=== PATIENT | female | born 1940 | race Caucasian/White ===

== ENCOUNTER 2017-12-18 11:54 | Inpatient (IN) | payer OTHER ==
[2017-12-18 13:26] LABS: ADD MAN DIFF? NO
[2017-12-18 13:30] LABS: WHITE BLOOD COUNT 12.1 10^3/ul (4.8-10.8)
[2017-12-18 13:30] LABS: BASOPHILS % 0.2 % (0.0-2.0); EOSINOPHILS # 0.2 10^3/ul (0.0-0.5); EOSINOPHILS % 1.7 % (0.0-7.0); HEMATOCRIT 36.7 % (37.0-47.0); HEMOGLOBIN 10.9 g/dl (12.0-16.0); LYMPHOCYTES # 0.8 10^3/ul (0.8-2.9); LYMPHOCYTES % 6.9 % (15.0-51.0); MEAN CORPUSCULAR HEMOGLOBIN 25.7 pg (29.0-33.0); MEAN CORPUSCULAR HGB CONC 29.7 g/dl (32.0-37.0); MEAN CORPUSCULAR VOLUME 86.6 fl (82.0-101.0); MEAN PLATELET VOLUME 10.7 fl (7.4-10.4); MONOCYTE # 0.9 10^3/ul (0.3-0.9); NEUTROPHIL # 10.1 10^3/ul (1.6-7.5); NEUTROPHILS % 83.8 % (39.0-77.0); PLATELET COUNT 362 10^3/UL (140-415); RED BLOOD COUNT 4.24 10^6/ul (4.20-5.40); RED CELL DISTRIBUTION WIDTH 18.3 % (11.5-14.5)
[2017-12-18 13:47] LABS: ANION GAP 10 (8-16); BLOOD UREA NITROGEN 36 mg/dl (7-20); CALCIUM 8.7 mg/dl (8.4-10.2); CARBON DIOXIDE 35 mmol/L (21-31); CHLORIDE 102 mmol/L (97-110); GLUCOSE 97 mg/dl (70-220); POTASSIUM 4.5 mmol/L (3.5-5.1); SODIUM 142 mmol/L (135-144)
[2017-12-18 13:59] LABS: TROPONIN-I 0.022 ng/ml (0.000-0.120)
[2017-12-18] MEDS: METHOCARBAMOL 750 MG TAB PO (14:21)
[2017-12-18] MEDS ORDERED: ONDANSETRON 4 MG INJ IV (15:00)
[2017-12-18] MEDS: LEVOFLOXACIN 500MG/D5W (PMX) 100 ML IV (15:51)
[2017-12-18] MEDS: SOD CHLORIDE 0.9% 500 ML IV (15:52)
[2017-12-18] MEDS: ACETAMINOPHEN 325 MG TAB PO (15:54)
[2017-12-18] MEDS ORDERED: IBUPROFEN 200 MG TAB (17:35)
[2017-12-18] MEDS ORDERED: ALBUTEROL/IPRATROPIUM (NEB) 3 ML AMP INH (18:30)
[2017-12-18] MEDS ORDERED: ACETAMINOPHEN 325 MG TAB PO (18:30)
[2017-12-18] MEDS ORDERED: HYDROCORTISONE 25 MG SUPP PR (18:30)
[2017-12-18] MEDS ORDERED: VANCOMYCIN IV PER PHARMACY XX (18:30)
[2017-12-18] MEDS ORDERED: BUPRENORPHINE HCL 2 MG SL (18:30)
[2017-12-18] MEDS ORDERED: NACL 0.9% 3 ML SYG IV (18:30)
[2017-12-18] MEDS ORDERED: CLOPIDOGREL 75 MG TAB PO (18:30)
[2017-12-18] MEDS ORDERED: ONDANSETRON 4 MG TAB PO (18:30)
[2017-12-18] MEDS: HYDROCODONE/APAP (5/325) TAB PO (19:13)
[2017-12-18] MEDS ORDERED: VANCOMYCIN 1.5 GM in SOD CHLORIDE 0.9% 250 ML IVPB (20:30)
[2017-12-18] MEDS: VANCOMYCIN 1 GM 250 ML IVPB ×2 (21:00→21:43)
[2017-12-18] MEDS: POLYETHYLENE GLYCOL 17 GM PACKET PO (21:00)
[2017-12-18] MEDS: BRIMONIDINE 0.2%-TIMOLOL 0.5% 5ML OPH LEFT EYE (21:06)
[2017-12-18] MEDS: LATANOPROST 0.005% 2.5 ML OPH LEFT EYE (21:06)
[2017-12-18] MEDS: CLOPIDOGREL 75 MG TAB PO (21:06)
[2017-12-18] MEDS: LUBIPROSTONE 24 MCG CAP PO (21:06)
[2017-12-18] MEDS: ATORVASTATIN 20 MG TAB PO (21:07)
[2017-12-18] MEDS: SUCRALFATE 1 GM TAB PO (21:07)
[2017-12-18] MEDS: GABAPENTIN 300 MG CAP PO (21:26)
[2017-12-18] MEDS: MAGNESIUM OXIDE 400 MG TAB PO (21:26)
[2017-12-18] MEDS: MIRTAZAPINE 15 MG TAB PO (21:26)
[2017-12-18] MEDS: QUETIAPINE 25 MG TAB PO (21:26)
[2017-12-19 05:52] LABS: ADD MAN DIFF? NO
[2017-12-19 06:00] LABS: BASOPHILS % 0.3 % (0.0-2.0); EOSINOPHILS # 0.6 10^3/ul (0.0-0.5); EOSINOPHILS % 6.4 % (0.0-7.0); HEMATOCRIT 34.1 % (37.0-47.0); HEMOGLOBIN 10.3 g/dl (12.0-16.0); LYMPHOCYTES # 0.6 10^3/ul (0.8-2.9); LYMPHOCYTES % 6.8 % (15.0-51.0); MEAN CORPUSCULAR HEMOGLOBIN 25.9 pg (29.0-33.0); MEAN CORPUSCULAR HGB CONC 30.2 g/dl (32.0-37.0); MEAN CORPUSCULAR VOLUME 85.7 fl (82.0-101.0); MEAN PLATELET VOLUME 10.6 fl (7.4-10.4); MONOCYTE # 0.8 10^3/ul (0.3-0.9); MONOCYTES % 8.7 % (0.0-11.0); NEUTROPHIL # 7.3 10^3/ul (1.6-7.5); NEUTROPHILS % 77.3 % (39.0-77.0); PLATELET COUNT 345 10^3/UL (140-415); RED BLOOD COUNT 3.98 10^6/ul (4.20-5.40); RED CELL DISTRIBUTION WIDTH 18.4 % (11.5-14.5)
[2017-12-19 06:00] LABS: WHITE BLOOD COUNT 9.4 10^3/ul (4.8-10.8)
[2017-12-19] MEDS: LEVOTHYROXINE 137 MCG TAB PO (06:42)
[2017-12-19 07:06] LABS: ALBUMIN 2.6 g/dl (3.3-4.9); ALBUMIN/GLOBULIN RATIO 1.04; ALKALINE PHOSPHATASE 39 IU/L (42-121); ANION GAP 6 (8-16); ASPARTATE AMINO TRANSFERASE 17 IU/L (15-46); BILIRUBIN,INDIRECT 0.2 mg/dl (0-1.1); BILIRUBIN,TOTAL 0.2 mg/dl (0.2-1.3); BLOOD UREA NITROGEN 34 mg/dl (7-20); CALCIUM 8.3 mg/dl (8.4-10.2); CARBON DIOXIDE 34 mmol/L (21-31); CHLORIDE 105 mmol/L (97-110); CHOL/HDL RATIO 2.5 RATIO; CHOLESTEROL 88 mg/dl (100-200); CREATININE 0.92 mg/dl (0.44-1.00); GLUCOSE 76 mg/dl (70-220); HDL CHOLESTEROL 34 mg/dl (33-92); LDL CHOLESTEROL,CALCULATED 38 mg/dl; PHOSPHORUS 3.6 mg/dl (2.5-4.9); POTASSIUM 4.3 mmol/L (3.5-5.1); SODIUM 141 mmol/L (135-144); TOTAL PROTEIN 5.1 g/dl (6.1-8.1); TRIGLYCERIDES 79 mg/dl (0-149)
[2017-12-19] MEDS: HYDROCODONE/APAP (5/325) TAB PO ×3 (08:05→22:29)
[2017-12-19 08:09] LABS: ALANINE AMINOTRANSFERASE 24 IU/L (13-69)
[2017-12-19] MEDS: ONDANSETRON 4 MG INJ IV (08:13)
[2017-12-19 08:41] LABS: THYROID STIMULATING HORMONE 0.338 MIU/L (0.465-4.680)
[2017-12-19 08:57] LABS: HEMOGLOBIN A1C 5.7 % (0-5.9)
[2017-12-19] MEDS: FLUTICASONE/VILANTEROL 100-25 INH (09:12)
[2017-12-19] MEDS: ASPIRIN 81 MG TAB PO (09:58)
[2017-12-19] MEDS: MAGNESIUM OXIDE 400 MG TAB PO ×2 (09:59→21:13)
[2017-12-19] MEDS: CLOPIDOGREL 75 MG TAB PO (09:59)
[2017-12-19] MEDS: LUBIPROSTONE 24 MCG CAP PO ×2 (09:59→21:00)
[2017-12-19] MEDS: SUCRALFATE 1 GM TAB PO ×2 (09:59→21:13)
[2017-12-19] MEDS: CIPROFLOXACIN 500 MG TAB PO (09:59)
[2017-12-19] MEDS: POLYETHYLENE GLYCOL 17 GM PACKET PO ×2 (09:59→21:00)
[2017-12-19] MEDS: METHOCARBAMOL 750 MG TAB PO (09:59)
[2017-12-19] MEDS: ESCITALOPRAM 10 MG TAB PO (09:59)
[2017-12-19] MEDS: GABAPENTIN 300 MG CAP PO ×2 (09:59→21:13)
[2017-12-19] MEDS: MULTIVITAMINS THERAPEUTIC TAB PO (10:00)
[2017-12-19] MEDS: FAMOTIDINE 20 MG TAB PO (10:00)
[2017-12-19] MEDS: BRIMONIDINE 0.2%-TIMOLOL 0.5% 5ML OPH LEFT EYE ×2 (10:00→21:17)
[2017-12-19] MEDS: LISINOPRIL 20 MG TAB PO (10:06)
[2017-12-19] MEDS: BUMETANIDE 1 MG TAB PO (10:26)
[2017-12-19] MEDS: morphine 2 MG INJ IV (11:41)
[2017-12-19] MEDS: MIRTAZAPINE 15 MG TAB PO (21:14)
[2017-12-19] MEDS: QUETIAPINE 25 MG TAB PO (21:14)
[2017-12-19] MEDS: ATORVASTATIN 20 MG TAB PO (21:14)
[2017-12-19] MEDS: LATANOPROST 0.005% 2.5 ML OPH LEFT EYE (21:17)
[2017-12-19] MEDS: GUAIFENESIN/DM 5ML CUP PO (22:33)
[2017-12-20] MEDS: LEVOTHYROXINE 137 MCG TAB PO (06:20)
[2017-12-20] MEDS: BUMETANIDE 1 MG TAB PO (08:53)
[2017-12-20] MEDS: ASPIRIN 81 MG TAB PO (08:53)
[2017-12-20] MEDS: GABAPENTIN 300 MG CAP PO ×2 (08:53→19:55)
[2017-12-20] MEDS: LUBIPROSTONE 24 MCG CAP PO (08:53)
[2017-12-20] MEDS: LISINOPRIL 20 MG TAB PO (08:54)
[2017-12-20] MEDS: FLUTICASONE/VILANTEROL 100-25 INH (08:54)
[2017-12-20] MEDS: CLOPIDOGREL 75 MG TAB PO (08:54)
[2017-12-20] MEDS: ESCITALOPRAM 10 MG TAB PO (08:54)
[2017-12-20] MEDS: POLYETHYLENE GLYCOL 17 GM PACKET PO (08:54)
[2017-12-20] MEDS: MAGNESIUM OXIDE 400 MG TAB PO ×2 (08:54→19:55)
[2017-12-20] MEDS: BRIMONIDINE 0.2%-TIMOLOL 0.5% 5ML OPH LEFT EYE ×2 (08:54→19:54)
[2017-12-20] MEDS: MULTIVITAMINS THERAPEUTIC TAB PO (08:54)
[2017-12-20] MEDS: SUCRALFATE 1 GM TAB PO ×2 (08:54→19:54)
[2017-12-20] MEDS: FAMOTIDINE 20 MG TAB PO (08:54)
[2017-12-20] MEDS: GUAIFENESIN/DM 5ML CUP PO ×2 (10:10→19:59)
[2017-12-20] MEDS: HYDROCODONE/APAP (5/325) TAB PO ×2 (10:10→19:01)
[2017-12-20] MEDS: ONDANSETRON 4 MG INJ IV (10:42)
[2017-12-20] MEDS: AZITHROMYCIN 500MG/NS (PMX) 250 ML IVPB (12:42)
[2017-12-20] MEDS: ATORVASTATIN 20 MG TAB PO (19:54)
[2017-12-20] MEDS: LATANOPROST 0.005% 2.5 ML OPH LEFT EYE (19:54)
[2017-12-20] MEDS: QUETIAPINE 25 MG TAB PO (19:55)
[2017-12-20] MEDS: MIRTAZAPINE 15 MG TAB PO (19:55)
[2017-12-21] MEDS: HYDROCODONE/APAP (5/325) TAB PO ×2 (03:51→10:16)
[2017-12-21] MEDS: LEVOTHYROXINE 137 MCG TAB PO (05:18)
[2017-12-21 06:47] LABS: ADD MAN DIFF? NO
[2017-12-21 06:48] LABS: BASOPHILS % 0.5 % (0.0-2.0); EOSINOPHILS % 10.8 % (0.0-7.0); HEMATOCRIT 33.7 % (37.0-47.0); HEMOGLOBIN 10.3 g/dl (12.0-16.0); LYMPHOCYTES # 1.2 10^3/ul (0.8-2.9); LYMPHOCYTES % 13.1 % (15.0-51.0); MEAN CORPUSCULAR HEMOGLOBIN 26.2 pg (29.0-33.0); MEAN CORPUSCULAR HGB CONC 30.6 g/dl (32.0-37.0); MEAN CORPUSCULAR VOLUME 85.8 fl (82.0-101.0); MEAN PLATELET VOLUME 11.1 fl (7.4-10.4); MONOCYTE # 0.8 10^3/ul (0.3-0.9); MONOCYTES % 9.6 % (0.0-11.0); NEUTROPHIL # 5.8 10^3/ul (1.6-7.5); NEUTROPHILS % 65.8 % (39.0-77.0); PLATELET COUNT 377 10^3/UL (140-415); RED BLOOD COUNT 3.93 10^6/ul (4.20-5.40); RED CELL DISTRIBUTION WIDTH 17.6 % (11.5-14.5)
[2017-12-21 06:48] LABS: WHITE BLOOD COUNT 8.8 10^3/ul (4.8-10.8)
[2017-12-21 07:49] LABS: ANION GAP 7 (8-16); BLOOD UREA NITROGEN 19 mg/dl (7-20); CALCIUM 8.4 mg/dl (8.4-10.2); CARBON DIOXIDE 37 mmol/L (21-31); CHLORIDE 101 mmol/L (97-110); CREATININE 0.89 mg/dl (0.44-1.00); GLUCOSE 89 mg/dl (70-220); POTASSIUM 3.8 mmol/L (3.5-5.1); SODIUM 141 mmol/L (135-144)
[2017-12-21] MEDS: BRIMONIDINE 0.2%-TIMOLOL 0.5% 5ML OPH LEFT EYE ×2 (09:00→10:15)
[2017-12-21] MEDS: ASPIRIN 81 MG TAB PO (09:34)
[2017-12-21] MEDS: GABAPENTIN 300 MG CAP PO (09:34)
[2017-12-21] MEDS: SUCRALFATE 1 GM TAB PO (09:35)
[2017-12-21] MEDS: FAMOTIDINE 20 MG TAB PO (09:35)
[2017-12-21] MEDS: MULTIVITAMINS THERAPEUTIC TAB PO (09:35)
[2017-12-21] MEDS: LISINOPRIL 20 MG TAB PO (09:35)
[2017-12-21] MEDS: ESCITALOPRAM 10 MG TAB PO (09:35)
[2017-12-21] MEDS: MAGNESIUM OXIDE 400 MG TAB PO (09:35)
[2017-12-21] MEDS: CLOPIDOGREL 75 MG TAB PO (09:35)
[2017-12-21] MEDS: BUMETANIDE 1 MG TAB PO (10:15)
[2017-12-21] MEDS: FLUTICASONE/VILANTEROL 100-25 INH (10:15)
[2017-12-21] MEDS: ALPRAZOLAM 0.25 MG TAB PO (10:16)
[2017-12-21] MEDS: AZITHROMYCIN 500MG/NS (PMX) 250 ML IVPB (12:53)
== END 2017-12-21 17:40 | DRG 177 ==
LOC: 6WM 12-21 07:46 → E/R 11:54 → PP2 15:02 → TEL 18:36
DX: J69.0 Pneumonitis due to inhalation of food and vomit (principal); I63.9 Cerebral infarction, unspecified; G89.29 Other chronic pain; E03.9 Hypothyroidism, unspecified; F32.9 Major depressive disorder, single episode, unspecified; E78.5 Hyperlipidemia, unspecified; I70.0 Atherosclerosis of aorta; I10 Essential (primary) hypertension; I25.10 Atherosclerotic heart disease of native coronary artery without angina pectoris; Z88.0 Allergy status to penicillin; Z88.2 Allergy status to sulfonamides; Z90.710 Acquired absence of both cervix and uterus; Z87.891 Personal history of nicotine dependence; Z91.81 History of falling; W06.XXXA Fall from bed, initial encounter; Y92.122 Bedroom in nursing home as the place of occurrence of the external cause
CPT/HCPCS: 70551; 71045; 80048; 80053; 80061; 82962; 83036; 83735; 84100; 84443; 84484; 85025; 92610; 93005; 93306; 97161; 97165; 99285-25